=== PATIENT | female | born 1965 | race Two or more races ===

== ENCOUNTER 2021-10-19 08:29 | Outpatient (CLI) | payer OTHER | END 2021-10-19 08:41 | disposition home or self-care (01) | LOC: LAB 08:29 | PROVIDERS: ATTEND Orthopaedic Surgery | DX: D64.9 Anemia, unspecified (principal); E88.9 Metabolic disorder, unspecified; D68.8 Other specified coagulation defects; N39.0 Urinary tract infection, site not specified; A49.02 Methicillin resistant Staphylococcus aureus infection, unspecified site; E11.9 Type 2 diabetes mellitus without complications; Z76.89 Persons encountering health services in other specified circumstances; I10 Essential (primary) hypertension; I49.9 Cardiac arrhythmia, unspecified ==

== ENCOUNTER 2021-10-19 09:42 | Outpatient (CLI) | payer OTHER | END 2021-10-19 09:46 | disposition home or self-care (01) | LOC: TOM 09:42 | PROVIDERS: ATTEND Orthopaedic Surgery | DX: M65.251 Calcific tendinitis, right thigh (principal) ==

== ENCOUNTER 2022-02-14 09:05 | Outpatient (CLI) | payer OTHER | END 2022-02-14 09:21 | disposition home or self-care (01) | LOC: LAB 09:05 | PROVIDERS: ATTEND Orthopaedic Surgery | DX: E55.9 Vitamin D deficiency, unspecified (principal); M85.9 Disorder of bone density and structure, unspecified; E56.1 Deficiency of vitamin K; E21.3 Hyperparathyroidism, unspecified; M81.8 Other osteoporosis without current pathological fracture; M10.9 Gout, unspecified; M19.90 Unspecified osteoarthritis, unspecified site ==

== ENCOUNTER 2022-08-21 07:31 | Outpatient (CLI) | payer OTHER ==
[~2022-08-21 07:31] MED LIST: NABUMETONE750 MG PO
== END 2022-08-21 07:32 | disposition home or self-care (01) ==
LOC: NUCLEAR 07:31
PROVIDERS: ATTEND Internal Medicine Gastroenterology
DX: K31.84 Gastroparesis (principal)